=== PATIENT | male | born 1945 | race African-American/Black ===

== ENCOUNTER 2019-10-28 13:48 | Emergency (ER) | payer BC, OTHER ==
[~2019-10-28] VITALS: Ht 180.3 cm; Wt 79.6 kg
--- NOTE | 2019-10-28 14:31 | PHYS DOC ---
Past Medical History Past Medical History: CVA Adult General HPI HPI 74-year-old male with history of CVA, who presents from nursing facility in cardiac arrest. EMS was called to the scene of an unresponsive patient. No pulse identified. Initial rhythm was pulseless electrical activity. A supraglottic a irway was placed by EMS. Resuscitation was initiated per ACLS protocol. The patient had a right tibial IO placed, through which multiple doses of epinephrine were administered. Call for med direction for termination orders. However, the patient had transient return of spontaneous circulation, and was therefore transferred to the ED for further management. Upon arrival, initial rhythm was PEA. The patient was undergoing chest compressions. He received additional multiple doses of epinephrine as well as 1 amp sodium bicarbonate. The patient supraglottic airway was exchanged with a 7.5 endotracheal tube. The patient did have transient return of spontaneous regulation, though this was very short-lived. Final rhythm was coarse PEA. Time of 1310. Review of Systems Review of Systems ROS could not be obtained secondary to patient condition. Physical Exam Physical Exam Gen: Unresponsive. Head: NC/AT Eyes: No scleral icterus. Fixed and dilated pupils. ENT: MMM. Airway in place. Neck: Supple. CV: No heart sounds auscultated. No pulses present. Resp: Rhonchorous. Symmetric BL breath sounds with bagging. Abd: Soft. ND. MSK: Peripheral cyanosis. No edema. Neuro: GCS 3T. Skin: Cool. Dry. Psych: Unresponsive. EKG EKG EKG at 1404. NSR. HR 80. Frequent PVCs. Diffuse nonspecific ST changes. Poor baseline waveform. No STEMI. Interpreted by me. Radiology/Procedures Radiology/Procedures [] Course & Med Decision Making Course & Med Decision Making Pertinent Labs and Imaging studies reviewed. (See chart for details) In summary, 74-year-old male who presents in cardiac arrest of unclear etiology. Transient ROSC, though quickly lost pulses. Despite extensive efforts, patient could not be successfully resuscitated. Time of 1410. Bedside cardiac US performed by me did not show any organized cardiac wall motion in the parasternal long or short axis views. Family not yet available. Dragon Disclaimer Dragon Disclaimer This electronic medical record was generated, in whole or in part, using a voice recognition dictation system. Departure Departure Impression: Primary Impression: Cardiac arrest Disposition: 20 Condition: Intubation Intubation : Time of Intubation: 13:58 Tube Size (cm): 7.5 Breath Sounds after Intubation: equal Intubation Complications: no complications Post Intubation Xray: No Progress Edwina-arrest intubation Critical Care Time Critical care time was [30] minutes exclusive of procedures. MELISSA PADRON DO Oct 28, 2019 14:31
[2019-10-28] MEDS ORDERED: SODIUM BICARB ADULT 8.4% 50 MEQ/50 ML DISP.SYRIN. IV ONE (16:15)
[2019-10-28] MEDS ORDERED: NOREPINEPHRINE VIAL 8 MG in IV DEXTROSE 5% 250 ML IV ONE (16:15)
[2019-10-28] MEDS ORDERED: ATROPINE 0.5 MG/5 ML DISP.SYRINGE. IM ONE (16:15)
[2019-10-28] MEDS ORDERED: EPINEPHrine SYRINGE 1 MG/10 ML SYRINGE IV ONE ×3 (16:15)
--- NOTE | 2019-10-28 16:28 | EKG ---
[facility] [address] [place] [address] Test Date: 2019-10-28 Test Time: 14:00:53 Pat Name: TONYA SHANE Department: Room: Gender: M Flight Manager: : 1945 Requested By: MELISSA PADRON Order Number: [id number] Reading MD: Measurements Intervals [place] Rate: 48 P: VT: QRS: 3 QRSD: 324 T: 116 QT: 640 QTc: 571 Interpretive Statements IRREGULAR RHYTHM, NO P-WAVE FOUND VENTRICULAR PREMATURE COMPLEX(ES) LOW LIMB LEAD VOLTAGE NON SPECIFIC INTRAVENTRICULAR BLOCK CONSIDER RIGHT VENTRICULAR HYPERTROPHY QRS(T) CONTOUR ABNORMALITY CONSISTENT WITH ANTEROLATERAL INFARCT AGE UNDETERMINED ABNORMAL ECG RI6.01 No previous ECG available for comparison
[2019-10-28] MEDS ORDERED: ATROPINE 0.5 MG/5 ML DISP.SYRINGE. IV ONE (17:45)
--- NOTE | 2019-10-28 22:48 | EKG ---
[facility] [address] [place] [address] Test Date: 2019-10-28 Test Time: 14:04:51 Pat Name: TONYA SHANE Department: Room: Gender: M Director [employer]: : 1945 Requested By: MELISSA PADRON Order Number: [id number] Reading MD: Measurements Intervals [place] Rate: 80 P: 0 [place]: 118 QRS: -91 QRSD: 92 T: 7 QT: 366 QTc: 426 Interpretive Statements SINUS RHYTHM VENTRICULAR PREMATURE COMPLEX(ES), TRIGEMINY CONSIDER LEFT VENTRICULAR HYPERTROPHY QRS(T) CONTOUR ABNORMALITY CONSIDER ANTEROSEPTAL MYOCARDIAL DAMAGE ST & T ABNORMALITY, CONSIDER RECENT INFERIOR MYOCARDIAL OR PERICARDIAL DAMAGE ABNORMAL ECG RI6.01 No previous ECG available for comparison
== END 2019-10-28 17:50 | disposition expired ==
LOC: ER 13:48
DX: I46.9 Cardiac arrest, cause unspecified (principal); Z86.73 Personal history of transient ischemic attack (TIA), and cerebral infarction without residual deficits
CPT/HCPCS: 31500; 93005; 99285; J0171; J0461